=== PATIENT | female | born 1955 | race Caucasian/White ===

== ENCOUNTER 2016-10-29 15:12 | Emergency (ER) | payer BC ==
--- NOTE | 2016-10-29 16:13 | ER NURSING DOCUMENTATION ---
Nurse's Notes [facility] Name:Juan Carlos Carpenter Age:61 yrs Sex:Female :1955 Arrival Date:10/29/2016 Time:15:12 Bed4 Private MD:Tolu Mendoza Diagnosis:Esophageal Stricture Presentation: 10/29 15:38 Presenting complaint: Patient states: has long history of esophageal strictures. Food sj caught in esophagus twice yesterday, twice today. Able to vomit and remove obstruction, able to swallow now and denies dyspnea. Transition of care: Home. Notified ED Physician of patient's arrival and CC Dr. Varela notified. 15:38 Acuity: ANJEL 5 sj 15:38 Method Of Arrival: Private Vehicle Triage Assessment: 15:42 General: Appears in no apparent distress, Behavior is cooperative, pleasant. Pain: sj Complains of pain in throat Pain currently is 2 out of 10 on a pain scale. 15:43 Neuro: Level of Consciousness is awake, alert, Oriented to person, place, time, event. sj Cardiovascular: Capillary refill < 3 seconds. Respiratory: Airway is patent Trachea midline Respiratory effort is even, unlabored, Respiratory pattern is regular, symmetrical. Historical: - Allergies: No known drug Allergies; - Home Meds: 1. Prochlorperazine Maleate Oral 2. Prevacid Oral 3. aspirin 81 mg oral tab 4. Bentyl Oral 5. Zyprexa Oral 6. Remeron Oral 7. Pepcid Oral 8. lamotrigine oral 9. Paxil Oral 10. Propranolol Oral 11. Zolpidem Tartrate Oral 12. Tranxene T-Tab Oral 13. modafinil oral 14. Bernie-D Oral - PMHx: IBS; PUD; Dissociative Disorder; paroxysmal atach; neck cancer; Hypertension; allergic rhinitis; insomnia; ANXIETY; aortic valve sclerosis; depression; anemia; - Tetanus: < 10 years. - Ebola Screening: : Patient negative for fever greater than or equal to 101.5 degrees Fahrenheit, and additional compatible Ebola Virus Disease symptoms. Patient denies exposure to infectious person. Patient denies travel to an Ebola-affected area in the 21 days before illness onset. No symptoms or risks identified at this time. . - Immunization history: Pneumococcal vaccine is up to date, Flu Vaccine < 1 year. - Social history: Smoking status: Patient states was never smoker of tobacco. Patient/guardian denies using alcohol, marijuana. Screenin:45 Infectious Disease Risk None. Abuse screen: Denies threats or abuse. Denies injuries sj from another. Nutritional screening: No deficits noted. Assessment: 15:45 See Triage Assessment done by same RN. sj Vital Signs: 15:43 BP 115 / 80; Pulse 134; Resp 16; Temp 97.6(TE); Pulse Ox 96% on R/A; Weight 60.78 kg; sj Height 5 ft. 4 in. (162.56 cm); Pain 2/10; 15:43 Body Mass Index 23.00 (60.78 kg, 162.56 cm) ED Course: 15:14 Patient arrived in ED. jt 15:14 Tolu Mendoza MD is Private Physician. jt 15:23 Ritchie Varela MD is Attending Physician. tl1 15:37 Caitie Waller is Primary Nurse. sj 15:39 Triage completed. 15:45 Valuables Remains with patient Patient has correct armband on for positive sj identification. Bed in low position. Call light in reach. 16:01 Tolu Mendoza MD is Referral Physician. tl1 Administered Medications: No medications were administered Outcome: 16:02 Discharge ordered by . tl1 16:11 Discharged to home ambulatory, with family. sj 16:11 Condition: stable 16:11 Instructed on discharge instructions, follow up and referral plans. Demonstrated understanding of instructions. 16:12 Patient left the ED. Signatures: Ritchie Varela MD MD tl1 Mariela Bell Caitie Waller
--- NOTE | 2016-10-29 16:13 | ER PHYSICIAN DOCUMENTATION ---
Physician Documentation [facility] Name:Juan Carlos Carpenter Age:61 yrs Sex:Female :1955 Arrival Date:10/29/2016 Time:15:12 Bed4 Private MD:Tolu Mendoza EDNicholeRitchie Disposition: 10/31 12:30 Chart complete. tl1 Disposition: 10/29/16 16:02 Discharged to Home/Self Care. Impression: Esophageal Stricture. - Condition is Good. - Discharge Instructions: Bodies, Foreign - ESOPHAGEAL FOREIGN BODY, Resolved. - Medical Reconciliation form form. - Follow up: Tolu Mendoza MD; When: 4- 6 days; Reason: Recheck today's complaints, Continuance of care. - Problem is an acute exacerbation. - Symptoms are resolved. HPI: 10/29 15:24 This 61 yrs old Female presents to ER with complaints of Foreign Body In tl1 Throat. 15:24 The patient or guardian reports the patient has a suspected foreign body, of the throat.tl1 15:24 She has a h/o esophageal stricture, s/p several dilations and several episodes of food tl1 impaction in her esophagus. She had one earlier today while eating chicken but that has resolved and she can now swallow. she comes to the ED now b/c she was told, apparently by a doctor friend that she should have an EGD soon. [place] came [place] from [place] and now comes to the ED. She has no complaint currently and is feeling fine.. Historical: - Allergies: No known drug Allergies; - Home Meds: 1. Prochlorperazine Maleate Oral 2. Prevacid Oral 3. aspirin 81 mg oral tab 4. Bentyl Oral 5. Zyprexa Oral 6. Remeron Oral 7. Pepcid Oral 8. lamotrigine oral 9. Paxil Oral 10. Propranolol Oral 11. Zolpidem Tartrate Oral 12. Tranxene T-Tab Oral 13. modafinil oral 14. Bernie-D Oral - PMHx: IBS; PUD; Dissociative Disorder; paroxysmal atach; neck cancer; Hypertension; allergic rhinitis; insomnia; ANXIETY; aortic valve sclerosis; depression; anemia; - Tetanus: < 10 years. - Ebola Screening: : Patient negative for fever greater than or equal to 101.5 degrees Fahrenheit, and additional compatible Ebola Virus Disease symptoms. Patient denies exposure to infectious person. Patient denies travel to an Ebola-affected area in the 21 days before illness onset. No symptoms or risks identified at this time. . - Immunization history: Pneumococcal vaccine is up to date, Flu Vaccine < 1 year. - Social history: Smoking status: Patient states was never smoker of tobacco. Patient/guardian denies using alcohol, marijuana. ROS: 16:00 Cardiovascular: Negative for chest pain, palpitations. tl1 16:00 Abdomen/GI: Negative for abdominal pain, nausea, vomiting, diarrhea. Exam: 16:00 Constitutional: This is a well developed, well nourished patient who is awake, alert, tl1 and in no acute distress. 16:00 Head/face: Exam is negative for acute changes. 16:00 Chest/axilla: Palpation: tenderness, is not appreciated. 16:00 Cardiovascular: Rate: normal. 16:00 Cardiovascular: Rhythm: regular, Heart sounds: normal. 16:00 Respiratory: Exam negative for acute changes, Respirations: normal, Breath sounds: are normal. Vital Signs: 15:43 BP 115 / 80; Pulse 134; Resp 16; Temp 97.6(TE); Pulse Ox 96% on R/A; Weight 60.78 kg; sj Height 5 ft. 4 in. (162.56 cm); Pain 2/10; 15:43 Body Mass Index 23.00 (60.78 kg, 162.56 cm) MDM: 15:23 Patient medically screened. tl1 16:00 Data reviewed: vital signs, nurses notes, and as a result, I will discharge patient. tl1 Counseling: I had a detailed discussion with the patient and/or guardian regarding: the historical points, exam findings, and any diagnostic results supporting the discharge/admit diagnosis, the need for outpatient follow up, to return to the emergency department if symptoms worsen or persist or if there are any questions or concerns that arise at home. Special discussion: No need for urgent intervention. Advised soft mechanical diet, chewing small boluses of food well, and return for difficulty swallowing or if worse in any way. F/U with GI in the next week or so . Dispensed Medications: No medications were administered Signatures: Ritchie Varela MD MD tl1 Caitie Waller
== END 2016-10-29 16:12 | disposition home or self-care (01) ==
LOC: ER 15:12
DX: K22.2 Esophageal obstruction (principal); I10 Essential (primary) hypertension; Z79.899 Other long term (current) drug therapy; Z79.82 Long term (current) use of aspirin
CPT/HCPCS: 99281